=== PATIENT | female | born 1955 | race Caucasian/White ===

== ENCOUNTER 2020-06-16 15:05 | Inpatient (IN) | payer OTHER ==
[~2020-06-16] VITALS: Ht 170.2 cm; Wt 85.1 kg
[2020-06-16 15:20] VITALS: BP_SYST 159
[2020-06-16 15:54] LABS: BASOPHILS # (AUTO) 0.1 K/uL (0.0-0.2); BASOPHILS % (AUTO) 1.7 % (0.0-2.0); EOSINOPHILS % (AUTO) 0.7 % (0.0-4.0); HEMATOCRIT 41.5 % (36-48); LYMPHOCYTES # (AUTO) 1.4 K/uL (1.0-5.5); LYMPHOCYTES % (AUTO) 19.3 % (20.5-51.5); MEAN CORPUSCULAR HEMOGLOBIN 31 pg (27-31); MEAN CORPUSCULAR HGB CONC 34 % (32-36); MEAN CORPUSCULAR VOLUME 91 fL (79.0-98.0); MONOCYTES # (AUTO) 0.5 K/uL (0.0-1.0); NEUTROPHILS # (AUTO) 5.3 K/uL (1.8-7.7); NEUTROPHILS % (AUTO) 71.3 % (40.0-70.0); PLATELET COUNT (AUTO) 303 K/uL (130-430); RED BLOOD CELL COUNT(AUTO) 4.56 MIL/uL (4.2-6.2); RED CELL DISTRIBUTION WIDTH 13.8 % (9.0-15.0); WHITE BLOOD COUNT (AUTO) 7.4 K/uL (4.8-10.8)
[2020-06-16 16:06] LABS: CALCIUM 9.7 mg/dL (8.4-11.0); CREATININE 1.11 mg/dL (0.55-1.30); POTASSIUM 3.5 mmol/L (3.5-5.1)
[2020-06-16 16:12] LABS: ALBUMIN 3.7 g/dL (3.4-4.8)
[2020-06-16 16:45] LABS: CKMB RELATIVE INDEX 1.1 (0.0-2.9); CREATINE KINASE MB 4.8 ng/mL (0-3.6)
[2020-06-16] MEDS ORDERED: ENALAPRILAT DIHYDRATE 1.25 MG/ML VIAL IVP ONE (17:30)
[2020-06-16] MEDS ORDERED: BENA20TA9 PO (17:59)
[2020-06-16] MEDS ORDERED: HYDROcodone/ACETAMIN 10-325 MG TAB PO PRN (18:30)
[2020-06-16] MEDS ORDERED: cloNIDine HCL 0.1 MG TABLET PO PRN (18:30)
[2020-06-16] MEDS ORDERED: ACETAMINOPHEN 325 MG TABLET PO PRN (18:30)
[2020-06-16] MEDS ORDERED: NALOXONE HCL 0.4 MG/ML AMP (NARCAN) IVP PRN ×2 (18:30)
[2020-06-16] MEDS ORDERED: HYDROcodone/ACETAMIN 5-325 MG TAB (NORCO/ VICODIN) PO PRN (18:30)
[2020-06-16] MEDS ORDERED: ONDANSETRON HCL 4 MG/2 ML VIAL IVP PRN (18:30)
[2020-06-16] MEDS ORDERED: LORazepam 2 MG/ML VIAL IVP PRN (18:30)
[2020-06-16 20:55] VITALS: BP_SYST 149
[2020-06-16 22:15] VITALS: BP_SYST 156
[2020-06-16] MEDS: LISINOPRIL 20 MG TABLET PO SCH (22:26)
[2020-06-16] MEDS: NORMAL SALINE 5 ML DISP.SYRIN IVF SCH (22:27)
[2020-06-16 23:55] VITALS: BP_SYST 140
[2020-06-17 05:19] LABS: EOSINOPHILS # (AUTO) 0.2 K/uL (0.0-0.4); HEMATOCRIT 39.5 % (36-48); HEMOGLOBIN 13.5 g/dL (12.0-16.0); WHITE BLOOD COUNT (AUTO) 7.3 K/uL (4.8-10.8)
[2020-06-17 05:46] LABS: CREATININE 0.94 mg/dL (0.55-1.30); PHOSPHORUS 3.9 mg/dL (2.7-4.5); POTASSIUM 3.5 mmol/L (3.5-5.1)
[2020-06-17 06:31] LABS: BASOPHILS # (AUTO) 0.1 K/uL (0.0-0.2); BASOPHILS % (AUTO) 0.8 % (0.0-2.0); LYMPHOCYTES # (AUTO) 1.6 K/uL (1.0-5.5); LYMPHOCYTES % (AUTO) 21.6 % (20.5-51.5); MEAN CORPUSCULAR HEMOGLOBIN 31 pg (27-31); MEAN CORPUSCULAR HGB CONC 34 % (32-36); MEAN CORPUSCULAR VOLUME 92 fL (79.0-98.0); MONOCYTES # (AUTO) 0.7 K/uL (0.0-1.0); NEUTROPHILS # (AUTO) 4.8 K/uL (1.8-7.7); NEUTROPHILS % (AUTO) 65.6 % (40.0-70.0); PLATELET COUNT (AUTO) 279 K/uL (130-430); RED BLOOD CELL COUNT(AUTO) 4.31 MIL/uL (4.2-6.2); RED CELL DISTRIBUTION WIDTH 13.6 % (9.0-15.0)
[2020-06-17] MEDS: NORMAL SALINE 5 ML DISP.SYRIN IVF SCH ×3 (07:29→22:00)
[2020-06-17 08:00] VITALS: BP_SYST 122
[2020-06-17] MEDS ORDERED: HYDROCHLOROTHIAZIDE 25 MG TABLET (HCTZ) PO SCH (09:00)
[2020-06-17] MEDS: ASPIRIN 325 MG TABLET PO SCH (09:19)
[2020-06-17 12:31] VITALS: BP_SYST 122
[2020-06-17] MEDS ORDERED: ASPI-858 PO (15:31)
[2020-06-17] MEDS ORDERED: LIP10 PO (15:31)
[2020-06-17 16:07] VITALS: BP_SYST 115
[2020-06-17 20:00] VITALS: BP_SYST 110
[2020-06-17] MEDS: LISINOPRIL 20 MG TABLET PO SCH (21:00)
[2020-06-18] MEDS: NORMAL SALINE 5 ML DISP.SYRIN IVF SCH ×2 (06:00→13:19)
[2020-06-18 08:00] VITALS: BP_SYST 109
[2020-06-18] MEDS: ASPIRIN 325 MG TABLET PO SCH (08:40)
[2020-06-18] MEDS ORDERED: IOHEXOL 350 mgI/mL, 150 ML INFUS..BTL IV ONE (10:45)
[2020-06-18 12:25] VITALS: BP_SYST 129
[2020-06-18] MEDS ORDERED: GADOBENATE DIMEGLUMINE 529 MG/ML, 15 ML VIAL IV ONE (12:39)
[2020-06-18 16:18] VITALS: BP_SYST 112
[2020-06-18 17:18] VITALS: BP_SYST 112
== END 2020-06-18 19:15 | disposition home or self-care (01) | DRG 66 ==
LOC: SED 15:05 → STU 18:15
PROVIDERS: ADMIT Internal Medicine Hospice and Palliative Medicine; ATTEND Internal Medicine Hospice and Palliative Medicine
DX: I63.9 Cerebral infarction, unspecified (principal); R73.9 Hyperglycemia, unspecified; I10 Essential (primary) hypertension
CPT/HCPCS: 36415; 70450-TC; 70496; 70498; 70551; 70553; 71045; 80048; 80053; 80061; 82550-TC; 82553-TC; 83735-TC; 83880; 84100-TC; 84484; 85025; 93005; 93306; 93880; 96374; 97163; 99291; A9577; G0378; Q9967

== ENCOUNTER 2020-08-09 07:05 | Day surgery (SDC) | payer OTHER, SELFPAY ==
[~2020-08-09] VITALS: Ht 170.2 cm; Wt 82.6 kg
[~2020-08-09 07:05] MED LIST: ASPI-858 PO; BENA20TA9 PO; CEFAZOLIN SOD 1 GM in D5W 50 ML IV ONE; LIP10 PO
[2020-08-09] MEDS ORDERED: NS IRRIG SOLN 1000 ML IR ONE (11:18)
[2020-08-09] MEDS ORDERED: LR 1,000 ML IV.SOLN IV ONE (11:18)
[2020-08-09] MEDS ORDERED: ePHEDrine sulfate 50 MG/ML VIAL IVP ONE (11:18)
[2020-08-09] MEDS ORDERED: KETOROLAC TROMETHAMINE 30 MG VIAL IVP ONE (11:18)
[2020-08-09] MEDS ORDERED: SEVOFLURANE 15 MIN GAS INH ONE (11:18)
[2020-08-09] MEDS ORDERED: METHYLENE BLUE 1 ML AMPUL INJ ONE (11:18)
[2020-08-09] MEDS ORDERED: BUPIVACAINE /PF 0.5% 30 ML VIAL INJ ONE (11:18)
[2020-08-09] MEDS ORDERED: PROPOFOL 200MG/ 20ML VIAL (DIPRIVAN) IV ONE (11:18)
[2020-08-09] MEDS ORDERED: GLYCOPYRROLATE 0.2 MG/ML VIAL IJ ONE (11:18)
[2020-08-09] MEDS ORDERED: DEXAMETHASONE SOD PHOSPHATE 4 MG/ML VIAL IVP ONE (11:18)
[2020-08-09] MEDS ORDERED: ONDANSETRON HCL 4 MG/2 ML VIAL IVP ONE (11:18)
[2020-08-09] MEDS ORDERED: MIDAZOLAM HCL 5 MG/5 ML VIAL IVP ONE (11:18)
[2020-08-09] MEDS ORDERED: fentaNYL CITRATE/PF 100 MCG/2 ML AMP IVP ONE (11:18)
[2020-08-09] MEDS ORDERED: hydrALAZINE HCL 20 MG/ML VIAL IVP PRN (12:15)
[2020-08-09] MEDS ORDERED: LR 1,000 ML IV SCH (12:15)
[2020-08-09] MEDS ORDERED: HYDROmorphone 1 MG INJ. 1 MG/ML AMPUL IVP PRN ×2 (12:15)
[2020-08-09] MEDS ORDERED: ONDANSETRON HCL 4 MG/2 ML VIAL IVP PRN (12:15)
[2020-08-09] MEDS ORDERED: LABETALOL 100 MG/ 20ML VIAL IVP PRN (12:15)
[2020-08-09] MEDS ORDERED: METOCLOPRAMIDE HCL 10 MG/2 ML VIAL IVP PRN (12:15)
[2020-08-09] MEDS ORDERED: MEPERIDINE HCL/PF 25 MG/ML DISP.SYRIN IVP PRN (12:15)
[2020-08-09] MEDS ORDERED: MIDAZOLAM HCL 2 MG/2 ML VIAL (VERSED) IVP PRN (12:15)
[2020-08-09] MEDS ORDERED: D5/0.45 NS 1,000 ML IV SCH (14:15)
[2020-08-09 16:11] VITALS: BP_SYST 121
== END 2020-08-09 16:00 | disposition home or self-care (01) ==
LOC: SMU 07:05 → SDS 07:05 → EDSTATUS 08:00 → SDS 16:00
PROVIDERS: ATTEND Colon & Rectal Surgery
DX: C43.61 Malignant melanoma of right upper limb, including shoulder (principal); I10 Essential (primary) hypertension; E78.5 Hyperlipidemia, unspecified; M17.10 Unilateral primary osteoarthritis, unspecified knee; Z86.73 Personal history of transient ischemic attack (TIA), and cerebral infarction without residual deficits; Z79.899 Other long term (current) drug therapy; Z20.828 Contact with and (suspected) exposure to other viral communicable diseases
CPT/HCPCS: 24079; 38525; 78195; 88307; 88341; 88342; A9541; J0690; J1100; J1885; J2250; J2405; J2704; J3010; J3490 ×2; J7060; J7120; Q9968; U0003; 88305

== ENCOUNTER 2020-08-23 18:29 | Emergency (ER) | payer OTHER, SELFPAY ==
[~2020-08-23] VITALS: Ht 167.6 cm; Wt 82.6 kg
[~2020-08-23 18:29] MED LIST changes: -CEFAZOLIN SOD 1 GM in D5W 50 ML IV ONE
[2020-08-23 19:38] VITALS: BP_SYST 136
[2020-08-23] MEDS ORDERED: cefTRIAXone 1 GM in LIDOCAINE 1%, 20 ML MDV 2.1 ML IM ONE (22:45)
[2020-08-23 23:57] LABS: BILIRUBIN,URINE NEGATIVE (NEGATIVE); BLOOD, URINE NEGATIVE (NEGATIVE); CLARITY/URINE SL CLOUDY (CLEAR); COLOR,URINE YELLOW (YELLOW); GLUCOSE,URINE NEGATIVE (NEGATIVE); KETONES,URINE NEGATIVE (NEGATIVE); LEUKOCYTE ESTERASE ,URINE TRACE (NEGATIVE); NITRITE, URINE NEGATIVE (NEGATIVE); PH,URINE 5.5 (5.0-8.0); PROTEIN URINE NEGATIVE (NEGATIVE); UROBILINOGEN,URINE 0.2 (0.2-1.0)
[2020-08-24 00:09] LABS: BACTERIA,URINE FEW /HPF (None Seen)
[2020-08-24 00:33] VITALS: BP_SYST 136
== END 2020-08-24 00:33 | disposition home or self-care (01) ==
LOC: SED 18:29
DX: L02.413 Cutaneous abscess of right upper limb (principal); I10 Essential (primary) hypertension; Z79.899 Other long term (current) drug therapy; Z79.82 Long term (current) use of aspirin
CPT/HCPCS: 81000; 87070; 87075; 87086; 96372; 99283; J0696; J2001; 87186-TC

== ENCOUNTER 2020-08-24 23:16 | Emergency (ER) | payer OTHER, SELFPAY ==
[~2020-08-24] VITALS: Ht 167.6 cm; Wt 82.6 kg
[2020-08-24 23:28] VITALS: BP_SYST 152
[2020-08-25] MEDS ORDERED: cefTRIAXone 1 GM in LIDOCAINE 1%, 20 ML MDV 2.1 ML IM ONE (00:30)
[2020-08-25 01:00] LABS: BASOPHILS % (AUTO) 0.4 % (0.0-2.0); EOSINOPHILS # (AUTO) 0.4 K/uL (0.0-0.4); EOSINOPHILS % (AUTO) 3.2 % (0.0-4.0); HEMATOCRIT 38.8 % (36-48); HEMOGLOBIN 12.8 g/dL (12.0-16.0); LYMPHOCYTES # (AUTO) 1.3 K/uL (1.0-5.5); LYMPHOCYTES % (AUTO) 10.3 % (20.5-51.5); MEAN CORPUSCULAR HEMOGLOBIN 31 pg (27-31); MEAN CORPUSCULAR HGB CONC 33 % (32-36); MEAN CORPUSCULAR VOLUME 93 fL (79.0-98.0); MONOCYTES # (AUTO) 0.9 K/uL (0.0-1.0); MONOCYTES % (AUTO) 7.1 % (1.7-9.3); NEUTROPHILS # (AUTO) 9.7 K/uL (1.8-7.7); PLATELET COUNT (AUTO) 245 K/uL (130-430); RED BLOOD CELL COUNT(AUTO) 4.16 MIL/uL (4.2-6.2); RED CELL DISTRIBUTION WIDTH 14.2 % (9.0-15.0); WHITE BLOOD COUNT (AUTO) 12.2 K/uL (4.8-10.8)
[2020-08-25 01:32] VITALS: BP_SYST 133
== END 2020-08-25 01:32 | disposition home or self-care (01) ==
LOC: SED 23:16
DX: L02.413 Cutaneous abscess of right upper limb (principal); I10 Essential (primary) hypertension; Z79.899 Other long term (current) drug therapy; Z79.82 Long term (current) use of aspirin
CPT/HCPCS: 36415; 73060; 85025; 96372; 99284; J0696; J2001

== ENCOUNTER 2024-01-13 22:33 | Emergency (ER) | payer BC, OTHER ==
[~2024-01-13] VITALS: Ht 165.1 cm; Wt 71.7 kg
[~2024-01-13 22:33] MED LIST changes: -ASPI-858 PO; +ASPI-859 PO; +BENA-6 PO; -BENA20TA9 PO; +LEVO-62 PO; +METR-154 PO
[2024-01-13 22:38] VITALS: BP_SYST 149; PULSE 88; RESP 22; TEMP 97; O2SAT 95
[2024-01-13] MEDS: NACL 0.9% 1,000 ML IV ONE (22:56)
[2024-01-13 23:20] LABS: BASOPHILS # (AUTO) 0.1 K/uL (0.0-0.2); BASOPHILS % (AUTO) 0.5 % (0.0-2.0); EOSINOPHILS # (AUTO) 0.3 K/uL (0.0-0.4); HEMATOCRIT 40.8 % (36-48); HEMOGLOBIN 13.8 g/dL (12.0-16.0); LYMPHOCYTES # (AUTO) 2.9 K/uL (1.0-5.5); LYMPHOCYTES % (AUTO) 25.9 % (20.5-51.5); MEAN CORPUSCULAR HEMOGLOBIN 31 pg (27-31); MEAN CORPUSCULAR HGB CONC 34 % (32-36); MEAN CORPUSCULAR VOLUME 91 fL (79.0-98.0); MONOCYTES # (AUTO) 0.8 K/uL (0.0-1.0); MONOCYTES % (AUTO) 7.2 % (1.7-9.3); NEUTROPHILS # (AUTO) 7.2 K/uL (1.8-7.7); NEUTROPHILS % (AUTO) 63.4 % (40.0-70.0); PLATELET COUNT (AUTO) 207 K/uL (130-430); RED BLOOD CELL COUNT(AUTO) 4.49 MIL/uL (4.2-6.2); RED CELL DISTRIBUTION WIDTH 14.5 % (9.0-15.0); WHITE BLOOD COUNT (AUTO) 11.3 K/uL (4.8-10.8)
[2024-01-13 23:47] LABS: INFLUENZA TYPE A Negative (NEGATIVE); INFLUENZA TYPE B NEGATIVE (NEGATIVE)
[2024-01-13] MEDS: MORPHINE 2 MG/ML INJ. SYRINGE IVP ONE (23:56)
[2024-01-14 00:12] LABS: ANION GAP 14 (5-15); CALCIUM 8.9 mg/dL (8.4-11.0); CARBON DIOXIDE 26 mmol/L (23-29); CHLORIDE 107 mmol/L (98-107); CREATININE 0.97 mg/dL (0.55-1.30); GFR AFRICAN AMERICAN 73 mL/min (>90); GLUCOSE 176 mg/dL (74-106); POTASSIUM 3.4 mmol/L (3.5-5.1); SODIUM SERUM 147 mmol/L (136-145); UREA NITROGEN, BLOOD 20 mg/dL (8-21)
[2024-01-14 00:18] LABS: GFR NON AFRICAN-AMERICAN 61 mL/min (>90)
[2024-01-14 00:19] LABS: ALANINE AMINOTRANSFERASE 43 U/L (12-78); ALBUMIN 3.7 g/dL (3.4-4.8); ASPARTATE AMINOTRANSFERASE 24 U/L (10-37); LIPASE 65 U/L (16-77); TOTAL BILIRUBIN 0.7 mg/dL (0.0-1.0); TOTAL PROTEIN, SERUM 7.3 g/dL (6.4-8.3)
[2024-01-14 00:22] LABS: ALCOHOL, BLOOD < 3 mg/dL (<10)
[2024-01-14] MEDS: NACL 0.9% 1,000 ML IV ONE (01:36)
[2024-01-14 01:50] LABS: BILIRUBIN,URINE NEGATIVE (NEGATIVE); BLOOD, URINE NEGATIVE (NEGATIVE); COLOR,URINE YELLOW (YELLOW); GLUCOSE,URINE TRACE (NEGATIVE); KETONES,URINE TRACE (NEGATIVE); LEUKOCYTE ESTERASE ,URINE TRACE (NEGATIVE); NITRITE, URINE NEGATIVE (NEGATIVE); PROTEIN URINE NEGATIVE (NEGATIVE); UROBILINOGEN,URINE 0.2 (0.2-1.0)
[2024-01-14 02:14] LABS: CLARITY/URINE SLIGHTLY CLOUDY (CLEAR)
[2024-01-14 02:15] LABS: BACTERIA,URINE RARE /HPF (None Seen); RBC,URINE 0-3 /HPF (0-3)
[2024-01-14] MEDS ORDERED: ONDA-8 TL (02:22)
[2024-01-14 03:25] VITALS: BP_SYST 143; PULSE 80; RESP 18; TEMP 98.6; O2SAT 95
== END 2024-01-14 03:25 | disposition home or self-care (01) ==
LOC: SED 22:33
DX: E86.0 Dehydration (principal); E87.6 Hypokalemia; E87.0 Hyperosmolality and hypernatremia; R11.2 Nausea with vomiting, unspecified; R55 Syncope and collapse; I10 Essential (primary) hypertension; Z20.822 Contact with and (suspected) exposure to COVID-19
CPT/HCPCS: 99285; 96360; 70450; 71045; 87426; 80053; 81000; 81001; 83690; 85025; 87040; 87086; 84484; 36415; 93005; 83605; 87804 ×2; 81015; G0482; J7030; J2270